=== PATIENT | male | born 1995 | race Caucasian/White ===

== ENCOUNTER 2019-12-19 18:52 | Emergency (ER) | payer MEDICAID ==
[~2019-12-19] VITALS: Ht 167.6 cm; Wt 90.7 kg
[2019-12-19 19:12] VITALS: BP 164/85
--- NOTE | 2019-12-19 19:19 | NUR ---
PT TRIAGED AND SENT TO [facility]
--- NOTE | 2019-12-19 19:48 | NUR ---
PT AMBULATED TO BED 11 WITH STEADY GAIT.
--- NOTE | 2019-12-19 19:48 | NUR ---
LAB AT BEDSIDE DRAWING BLOOD.
[2019-12-19 19:58] LABS: BASOPHILS # (AUTO) 0.1 K/uL (0.00-0.22); BASOPHILS % (AUTO) 0.7 % (0.0-2.0); EOSINOPHILS % (AUTO) 0.3 % (0.0-4.0); HEMATOCRIT 47.8 % (36-52); HEMOGLOBIN 16.3 g/dL (12.0-18.0); LYMPHOCYTES # (AUTO) 1.6 K/uL (2.0-11.5); LYMPHOCYTES % (AUTO) 18.7 % (20.5-51.1); MEAN CORPUSCULAR HEMOGLOBIN 31 pg (27-31); MEAN CORPUSCULAR HGB CONC 34 g/dL (33-37); MEAN CORPUSCULAR VOLUME 90.1 fL (80-94); MONOCYTES # (AUTO) 0.6 K/uL (0.8-1.0); MONOCYTES % (AUTO) 7.2 % (1.7-9.3); NEUTROPHILS # (AUTO) 6.1 K/uL (1.8-7.7); NEUTROPHILS % (AUTO) 73.1 % (42.2-75.2); PLATELET COUNT (AUTO) 235 K/uL (140-450); RED BLOOD CELL COUNT(AUTO) 5.31 MIL/uL (4.20-6.10); RED CELL DISTRIBUTION WIDTH 13.7 % (11.6-13.7); WHITE BLOOD COUNT (AUTO) 8.3 K/uL (4.8-10.8)
[2019-12-19] MEDS ORDERED: DICYCLOMINE HCL LIQUID 20 MG, ALUMINUM HYD/MAG/SIMETHICONE 30 ML, LIDOCAINE VISCOUS 2% ... PO ONE ×3 (20:05)
[2019-12-19] MEDS ORDERED: DICYCLOMINE HCL LIQUID 10 MG/5 ML UDC ONE (20:09)
[2019-12-19] MEDS ORDERED: LIDOCAINE VISCOUS 2% 20 ML UDC ONE (20:09)
[2019-12-19] MEDS ORDERED: ALUMINUM HYD/MAG/SIMETHICONE 30 ML UDC ONE (20:09)
--- NOTE | 2019-12-19 20:17 | NUR ---
24 Y/O MALE C/O EPIGASTRIC PAIN X 2 DAYS. RATES PAIN 9/10 AND DESCRIBES IT BURNING. ABD IS SOFT, RPUND, TENDER TO TOUCH IN THE EPIGASTRIC REGION, ACTIVE BS. +N,V. DENIES ANY BLOOD IN URINE OR IN VOMIT. VSS. A&OX4. STEADYG AIT. DENIES TAKING ANY PAIN MEDS. NKA. DENIES ANY PMH.
[2019-12-19 21:11] LABS: ALBUMIN 4.6 g/dL (3.4-5.0); ANION GAP 20.4 (8-16); CARBON DIOXIDE 24.6 mmol/L (21-32); CREATININE 1.1 mg/dL (0.6-1.3); TOTAL BILIRUBIN 0.5 mg/dL (0.0-1.0)
[2019-12-19] MEDS ORDERED: KETOROLAC 30 MG/ML VIAL IM ONE (21:20)
--- NOTE | 2019-12-19 21:35 | NUR ---
PT TRANSFER TO [facility] VIA W/C.
--- NOTE | 2019-12-19 21:50 | NUR ---
PT RETURNED FROM [facility]/S VIA WHEELCHAIR.
--- NOTE | 2019-12-19 22:00 | NUR ---
Note ileanaone in EDM - 12/20/19 at 0027 by [facility] AFTER GIVING TORADOL IM, PT HAD A AN ALLERGIC REACTION. +HIVES, +ERYTHEMA, +ITCHINESS. NO RESP DISTRESS NOTED. AIRWAY PATENT AND CLEAR. VSS.
--- NOTE | 2019-12-19 22:00 | NUR ---
AFTER GIVING TORADOL IM, PT HAD A AN ALLERGIC REACTION. +HIVES, +ERYTHEMA, +ITCHINESS. NO RESP DISTRESS NOTED. AIRWAY PATENT AND CLEAR. VSS. JON INMAN AWARE.
--- NOTE | 2019-12-19 23:11 | NUR ---
PT BEING TRANSFERRED TO CT VIA W/C.
--- NOTE | 2019-12-19 23:21 | NUR ---
PT RETURNED BACK FROM CT VIA W/C.
[2019-12-19 23:58] VITALS: BP 162/82
--- NOTE | 2019-12-20 00:14 | NUR ---
PT UP FOR DISCHARGE. PT NOTED TO HAVE ALLERGIC REACTION TO MEDICATION,ERYTHEMA AND HIVES NOTED TO PT UPPER CHEST AND LT UPPER ARM. ERMD NOTIFIED.
--- NOTE | 2019-12-20 00:15 | NUR ---
RASH AND HIVES NOTED ON PT AFTER RECEIVING TORADOL. ERMD NOTIFIED AND AWARE.
--- NOTE | 2019-12-20 00:20 | NUR ---
PT REPORTS THAT AFTER RECIEVING TORADOL IM, RASH STARTED.
--- NOTE | 2019-12-20 00:30 | NUR ---
Patient discharged with v/s stable. Written and verbal after care instructions given and explained. Patient alert, oriented and verbalized understanding of instructions. Ambulatory with steady gait. All questions addressed prior to discharge. ID band removed. Patient advised to follow up with PMD. Rx of NAPROSYN AND MYLANTA given. Patient educated on indication of medication including possible reaction and side effects. Opportunity to ask questions provided and answered.
== END 2019-12-20 00:30 | disposition home or self-care (01) ==
LOC: MED 18:52
DX: R10.9 Unspecified abdominal pain (principal); Z88.6 Allergy status to analgesic agent
CPT/HCPCS: 36415; 74176; 76705; 80053; 83690; 85025; 96372; 99284; J1885; Q0092; Q0163

== ENCOUNTER 2020-02-23 10:22 | Emergency (ER) | payer MEDICAID ==
[~2020-02-23] VITALS: Ht 167.6 cm; Wt 89.8 kg
[2020-02-23 10:27] VITALS: BP 173/107
--- NOTE | 2020-02-23 10:34 | NUR ---
AMB TO BED 02
--- NOTE | 2020-02-23 10:43 | NUR ---
24 YO MALE CO LEFT SIDED ABD PAIN. PAIN IS 7/10 AND NON RADIATING. PT DENIES N/D. PT STATED THAT HE DID VOMIT ONCE TODAY.
[2020-02-23] MEDS ORDERED: NACL 0.9% 1,000 ML IV ONE (10:51)
[2020-02-23] MEDS ORDERED: ONDANSETRON 4 MG/2 ML VIAL IVP ONE (10:55)
[2020-02-23] MEDS ORDERED: LORazepam 2 MG/ML VIAL IVP ONE (10:55)
[2020-02-23 11:22] LABS: BASOPHILS % (AUTO) 0.5 % (0.0-2.0); EOSINOPHILS % (AUTO) 0.7 % (0.0-4.0); HEMATOCRIT 49.5 % (36-52); HEMOGLOBIN 16.5 g/dL (12.0-18.0); LYMPHOCYTES # (AUTO) 2.2 K/uL (2.0-11.5); LYMPHOCYTES % (AUTO) 29.9 % (20.5-51.1); MEAN CORPUSCULAR HEMOGLOBIN 31 pg (27-31); MEAN CORPUSCULAR HGB CONC 33 g/dL (33-37); MONOCYTES # (AUTO) 0.5 K/uL (0.8-1.0); MONOCYTES % (AUTO) 6.7 % (1.7-9.3); NEUTROPHILS # (AUTO) 4.6 K/uL (1.8-7.7); NEUTROPHILS % (AUTO) 62.2 % (42.2-75.2); PLATELET COUNT (AUTO) 228 K/uL (140-450); RED BLOOD CELL COUNT(AUTO) 5.38 MIL/uL (4.20-6.10); RED CELL DISTRIBUTION WIDTH 13.5 % (11.6-13.7); WHITE BLOOD COUNT (AUTO) 7.3 K/uL (4.8-10.8)
[2020-02-23 11:40] LABS: ALBUMIN 4.6 g/dL (3.4-5.0); ANION GAP 18.7 (8-16); ASPARTATE AMINOTRANSFERASE 139 U/L (15-37); CHLORIDE 105 mmol/L (98-107); CREATININE 0.9 mg/dL (0.6-1.3); GFR ARICAN-AMERICAN 131 mL/min (>90); GLUCOSE 126 mg/dL (74-106); LIPASE 76 U/L (73-393); POTASSIUM 3.7 mmol/L (3.5-5.1); SODIUM SERUM 142 mmol/L (136-145); TOTAL BILIRUBIN 0.3 mg/dL (0.0-1.0); UREA NITROGEN, BLOOD 6 mg/dL (7-18)
[2020-02-23 12:08] VITALS: BP 165/83
--- NOTE | 2020-02-23 12:08 | NUR ---
Patient discharged with v/s stable. Written and verbal after care instructions given and explained. Patient alert, oriented and verbalized understanding of instructions. Ambulatory with steady gait. All questions addressed prior to discharge. ID band removed. Patient advised to follow up with PMD. Rx of MYLANTA given. Patient educated on indication of medication including possible reaction and side effects. Opportunity to ask questions provided and answered.
== END 2020-02-23 12:08 | disposition home or self-care (01) ==
LOC: MED 10:22
DX: R10.12 Left upper quadrant pain (principal); R11.0 Nausea; Z88.8 Allergy status to other drugs, medicaments and biological substances
CPT/HCPCS: 36415; 80053; 83690; 85025; 96361; 96374; 96375; 99284; G0482; J2060; J2405; J7030

== ENCOUNTER 2020-04-06 20:43 | Emergency (ER) | payer MEDICAID ==
[~2020-04-06] VITALS: Ht 165.1 cm; Wt 91.2 kg
[2020-04-06 20:47] VITALS: BP 183/99
--- NOTE | 2020-04-06 20:52 | NUR ---
pt ambulated to ER bed 6 w/ steady gait.
--- NOTE | 2020-04-06 20:53 | NUR ---
25 Y/O MALE PRESENTED TO ED C/O ALLERGIC REACTION AFTER EATING CHICKEN X 30 MINS AGO. OBSERVED HIVES ON BL UPPER EXTREMITIES. PT DENIES SOB , FEVER, CHILLS , N/V/D. PT DENIES TAKING ANY MEDICATION AT THIS TIME FOR ALLERGIC REACTION. RR EVEN AND UNLABORED. A/O X 4. PT RESTING IN BED, LOCKED AND IN LOWEST POSITION, HOB ELEVATED, SIDE RAIL X1. VSS. ERMD MADE AWARE OF PT STATUS. PMH: DENIES AX: KETOROLAC, NAPROXEN
[2020-04-06] MEDS ORDERED: diphenhydrAMINE 50 MG CAP PO ONE (20:55)
--- NOTE | 2020-04-06 20:55 | NUR ---
CHANELLED MADE AWARE OF PT ALLERGIC REACTION - PER ERMD ADMINISTER PO BENADRYL 50MG AT THIS TIME.
--- NOTE | 2020-04-06 21:20 | NUR ---
Patient discharged with v/s stable. Written and verbal after care instructions given and explained. Patient alert, oriented and verbalized understanding of instructions. Ambulatory with steady gait. All questions addressed prior to discharge. ID band removed. Patient advised to follow up with PMD. Rx of PREDNISONE & BENADRYL given. Patient educated on indication of medication including possible reaction and side effects. Opportunity to ask questions provided and answered.
== END 2020-04-06 21:20 | disposition home or self-care (01) ==
LOC: MED 20:43
DX: L50.9 Urticaria, unspecified (principal); Z88.6 Allergy status to analgesic agent
CPT/HCPCS: 99283; Q0163

== ENCOUNTER 2021-11-28 23:05 | Emergency (ER) | payer MEDICAID ==
[~2021-11-28] VITALS: Ht 170.2 cm; Wt 96.2 kg
[2021-11-28 23:11] VITALS: BP 159/74
[2021-11-29] MEDS ORDERED: ACETAMINOPHEN 325 MG TAB PO ONE (00:35)
[2021-11-29] MEDS ORDERED: cephALEXin 500 MG CAP PO ONE (00:35)
[2021-11-29] MEDS ORDERED: CEPH-588 PO (01:29)
[2021-11-29] MEDS ORDERED: TRAM50TA1 PO (01:29)
[2021-11-29 01:47] VITALS: BP 159/74
== END 2021-11-29 01:48 | disposition home or self-care (01) ==
LOC: MED 23:05
DX: S62.522A Displaced fracture of distal phalanx of left thumb, initial encounter for closed fracture (principal); S60.112A Contusion of left thumb with damage to nail, initial encounter; Z79.891 Long term (current) use of opiate analgesic; Z79.2 Long term (current) use of antibiotics; Z88.6 Allergy status to analgesic agent; X58.XXXA Exposure to other specified factors, initial encounter; Y93.89 Activity, other specified; Y92.89 Other specified places as the place of occurrence of the external cause; Y99.8 Other external cause status
CPT/HCPCS: 11740; 73140; 90715; 99283; 99284

== ENCOUNTER 2023-11-29 23:40 | Emergency (ER) | payer MEDICAID, OTHER ==
[~2023-11-29] VITALS: Ht 162.6 cm; Wt 86.2 kg
[~2023-11-29 23:40] MED LIST: CEPH-588 PO; TRAM-748 PO
[2023-11-29 23:52] VITALS: BP 148/90; PULSE 110; RESP 16; TEMP 97.9; O2SAT 97
[2023-11-30] MEDS: NEOMYCIN/POLYMYXIN/BACITRACIN 0.9 GM/1 PKT TP ONE (01:10)
[2023-11-30 02:34] VITALS: BP 140/90; PULSE 100; RESP 16; TEMP 97.6; O2SAT 97
== END 2023-11-30 02:34 | disposition home or self-care (01) ==
LOC: MED 23:40
DX: S01.81XA Laceration without foreign body of other part of head, initial encounter (principal); Z79.2 Long term (current) use of antibiotics; Z79.899 Other long term (current) drug therapy; Z88.6 Allergy status to analgesic agent; W22.8XXA Striking against or struck by other objects, initial encounter; Y93.89 Activity, other specified; Y92.89 Other specified places as the place of occurrence of the external cause; Y99.8 Other external cause status
CPT/HCPCS: 70450; 70486; 99284

== ENCOUNTER 2024-02-04 21:08 | Emergency (ER) | payer OTHER ==
[~2024-02-04] VITALS: Ht 157.5 cm; Wt 87.5 kg
[2024-02-04 21:21] VITALS: BP 178/114; PULSE 97; RESP 14; TEMP 98.6; O2SAT 98
[2024-02-04] MEDS: PROCHLORPERAZINE 10 MG/2 ML VIAL IM ONE (22:19)
[2024-02-04 22:23] LABS: BASOPHILS # (AUTO) 0.1 K/uL (0.00-0.22); BASOPHILS % (AUTO) 1.8 % (0.0-2.0); EOSINOPHILS % (AUTO) 0.6 % (0.0-4.0); HEMATOCRIT 48.8 % (36-52); HEMOGLOBIN 16.4 g/dL (12.0-18.0); LYMPHOCYTES % (AUTO) 37.3 % (20.5-51.1); MEAN CORPUSCULAR HEMOGLOBIN 31 pg (27-31); MEAN CORPUSCULAR HGB CONC 34 g/dL (33-37); MEAN CORPUSCULAR VOLUME 90.9 fL (80-94); MONOCYTES # (AUTO) 0.5 K/uL (0.8-1.0); MONOCYTES % (AUTO) 10.2 % (1.7-9.3); NEUTROPHILS # (AUTO) 2.7 K/uL (1.8-7.7); NEUTROPHILS % (AUTO) 50.1 % (42.2-75.2); PLATELET COUNT (AUTO) 225 K/uL (140-450); RED BLOOD CELL COUNT(AUTO) 5.38 MIL/uL (4.20-6.10); RED CELL DISTRIBUTION WIDTH 13.8 % (11.6-13.7); WHITE BLOOD COUNT (AUTO) 5.3 K/uL (4.8-10.8)
[2024-02-04 22:35] LABS: CALCIUM 9.1 mg/dL (8.5-10.1); CARBON DIOXIDE 25.9 mmol/L (21-32); CREATININE 0.7 mg/dL (0.6-1.3); POTASSIUM 3.9 mmol/L (3.5-5.1)
[2024-02-04 23:00] VITALS: BP 115/66; PULSE 88; RESP 16; O2SAT 100
[2024-02-04] MEDS ORDERED: ACET-9496 PO (23:28)
== END 2024-02-04 23:30 | disposition home or self-care (01) ==
LOC: MED 21:08
DX: R51.9 Headache, unspecified (principal); R42 Dizziness and giddiness; J02.9 Acute pharyngitis, unspecified; R10.9 Unspecified abdominal pain; I10 Essential (primary) hypertension; Z79.899 Other long term (current) drug therapy; Z88.6 Allergy status to analgesic agent
CPT/HCPCS: 36415; 70450; 80048; 84484; 85025; 93005; 96372; 99285; J0780